=== PATIENT | male | born 1950 | race Caucasian/White ===

== ENCOUNTER 2021-10-08 10:04 | Inpatient (IN) | payer OTHER ==
[~2021-10-08] VITALS: Ht 175.3 cm; Wt 92.2 kg
[2021-10-08] MEDS: NICOTINE 14 MG/24 HR TRANSDERMAL TD SCH (09:00)
[2021-10-08] MEDS ORDERED: NS 2,730 ML in IV 1 EA IV ONE (10:20)
[2021-10-08 10:34] LABS: VENOUS BASE EXCESS -5.5 (-2.0-2.0); VENOUS HCO3 20.8 MEQ/L (23.0-27.0); VENOUS PARTIAL PRESSURE CO2 43.5 mmHg (38.0-50.0); VENOUS PARTIAL PRESSURE O2 46.3 mmHg (30.0-50.0); VENOUS PH 7.297 UNITS (7.330-7.430); VENOUS STANDARD HCO3 19.6 MEQ/L; VENOUS TOTAL CO2 22.1 MEQ/L (24.0-28.0)
[2021-10-08 10:40] LABS: BASO # 0.2 10^3/uL (0.0-0.2); EOS # 0.5 10^3/uL (0.0-0.5); EOS % 2.9 % (0.0-3.0); HEMATOCRIT 33.9 % (42.0-52.0); HEMOGLOBIN 11.1 g/dl (13.5-17.5); LYMPH # 2.9 10^3/uL (1.5-5.0); LYMPH % 15.6 % (24.0-44.0); MEAN CORPUSCULAR HEMOGLOBIN 31.3 pg (27.0-33.0); MEAN CORPUSCULAR HGB CONC 32.7 g/dl (32.0-36.5); MEAN CORPUSCULAR VOLUME 95.5 fl (80.0-96.0); MONO # 1.1 10^3/uL (0.0-0.8); MONO % 5.7 % (2.0-8.0); PLATELET COUNT, AUTOMATED 205 10^3/uL (150-450); RED BLOOD COUNT 3.55 10^6/uL (4.30-6.10); WHITE BLOOD COUNT 18.6 10^3/uL (4.0-10.0)
[2021-10-08 10:50] LABS: INR 0.94
[2021-10-08] MEDS ORDERED: cefTRIAXone SOD 2 GM in D5W MINI-BAG PLUS 50 ML IV ONE (10:50)
[2021-10-08 11:14] LABS: BILIRUBIN,DIRECT 0.2 MG/DL (0.0-0.2); BILIRUBIN,TOTAL 0.3 MG/DL (0.2-1.0); CALCIUM LEVEL 12.5 MG/DL (8.8-10.2); CREATININE FOR GFR 2.29 MG/DL (0.70-1.30); GLOMERULAR FILTRATION RATE 30.1 (>42); POTASSIUM SERUM 3.5 MEQ/L (3.5-5.1); THYROID STIMULATING HORMONE 2.21 uIU/ML (0.358-3.740)
[2021-10-08] MEDS ORDERED: ACETAMINOPHEN TAB 650MG DOSE (2X325MG) PO PRN (14:00)
[2021-10-08] MEDS ORDERED: OCEA0.654 (14:38)
[2021-10-08] MEDS ORDERED: ASPI-161 PO (14:38)
[2021-10-08] MEDS ORDERED: REFR0.5D8 OU (14:38)
[2021-10-08] MEDS ORDERED: D3 S20002 PO (14:38)
[2021-10-08] MEDS ORDERED: LISI30TA4 PO (14:38)
[2021-10-08] MEDS ORDERED: OXYC-517 PO (14:38)
[2021-10-08] MEDS ORDERED: SENN1TAB94 PO (14:38)
[2021-10-08] MEDS ORDERED: MELO15TA28 PO (14:38)
[2021-10-08] MEDS ORDERED: VENTAER INH (14:38)
[2021-10-08] MEDS ORDERED: METO1TAB32 PO (14:38)
[2021-10-08] MEDS ORDERED: ROSU40TA4 PO (14:38)
[2021-10-08] MEDS ORDERED: METF500T13 PO (14:38)
[2021-10-08] MEDS ORDERED: FISH1000 PO (14:38)
[2021-10-08] MEDS ORDERED: VITA500C24 PO (14:38)
[2021-10-08] MEDS ORDERED: GABA-283 PO (14:38)
[2021-10-08] MEDS ORDERED: ALB2.5NEB INH (14:38)
[2021-10-08] MEDS ORDERED: HOME MED LIST COMPLETE! XX SCH (14:40)
[2021-10-08 15:20] LABS: MAGNESIUM LEVEL 2.3 MG/DL (1.8-2.4); URIC ACID 7.7 MG/DL (3.5-7.2)
[2021-10-08 15:21] LABS: CREATININE,RANDOM URINE 73.4 MG/DL; TOTAL PROTEIN,RANDOM URINE 112.5 MG/DL (0.0-12.0)
[2021-10-08 16:05] VITALS: BP 116/65
[2021-10-08] MEDS: NS 1,000 ML IV SCH ×2 (16:38→23:09)
[2021-10-08] MEDS ORDERED: GLUCOSE 4GM CHEW TABLET PO PRN (20:15)
[2021-10-08] MEDS ORDERED: GLUCAGON INJ 1MG VIAL SC PRN (20:15)
[2021-10-08] MEDS ORDERED: DEXTROSE 50% 50 ML SYRINGE IV PRN (20:15)
[2021-10-08] MEDS ORDERED: ALBUTEROL SULFATE 2.5 MG/0.5 ML INH NEB SOLN INH PRN (20:20)
[2021-10-08] MEDS: INSULIN LISPRO (NovoLOG) PER UNIT SC SCH (21:00)
[2021-10-08] MEDS: SODIUM CHLORIDE NASAL 0.65% SPRAY BTL (OCEAN) SCH (21:00)
[2021-10-08] MEDS: ROSUVASTATIN 10 MG TAB (CRESTOR) PO SCH (21:32)
[2021-10-08] MEDS: GABAPENTIN 400MG CAP PO SCH (21:32)
[2021-10-08] MEDS: METOPROLOL SUCC *XL* 25MG TAB (TopROL *XL*) PO SCH (21:36)
[2021-10-08] MEDS: oxyCODONE 5MG TAB PO SCH (21:37)
[2021-10-08 22:00] VITALS: BP 128/67
[2021-10-09 05:52] LABS: BASO # 0.1 10^3/uL (0.0-0.2); BASO % 0.8 % (0.0-1.0); EOS # 0.5 10^3/uL (0.0-0.5); EOS % 4.3 % (0.0-3.0); HEMATOCRIT 26.9 % (42.0-52.0); LYMPH # 1.9 10^3/uL (1.5-5.0); LYMPH % 15.6 % (24.0-44.0); MEAN CORPUSCULAR HGB CONC 32.7 g/dl (32.0-36.5); MEAN CORPUSCULAR VOLUME 94.7 fl (80.0-96.0); MONO # 0.7 10^3/uL (0.0-0.8); MONO % 5.7 % (2.0-8.0); NEUTROPHILS # 8.2 10^3/uL (1.5-8.5); NEUTROPHILS % 69.1 % (36.0-66.0); PLATELET COUNT, AUTOMATED 148 10^3/uL (150-450); RED BLOOD COUNT 2.84 10^6/uL (4.30-6.10); WHITE BLOOD COUNT 11.9 10^3/uL (4.0-10.0)
[2021-10-09 06:00] VITALS: BP 124/62
[2021-10-09 06:10] LABS: HEMOGLOBIN 8.8 g/dl (13.5-17.5); HEMOGLOBIN A1c 5.3 %
[2021-10-09 06:26] LABS: ALBUMIN 2.3 GM/DL (3.2-5.2); ALT/SGPT 199 U/L (12-78); BILIRUBIN,DIRECT < 0.1 MG/DL (0.0-0.2); BILIRUBIN,TOTAL 0.2 MG/DL (0.2-1.0); BLOOD UREA NITROGEN 56 MG/DL (7-18); CALCIUM LEVEL 9.9 MG/DL (8.8-10.2); CARBON DIOXIDE LEVEL 23 MEQ/L (21-32); CHLORIDE LEVEL 120 MEQ/L (98-107); CREATININE FOR GFR 1.63 MG/DL (0.70-1.30); GLOMERULAR FILTRATION RATE 44.5 (>42); GLUCOSE, FASTING 93 MG/DL (70-100); POTASSIUM SERUM 3.2 MEQ/L (3.5-5.1); SODIUM LEVEL 148 MEQ/L (136-145); TOTAL PROTEIN 4.6 GM/DL (6.4-8.2)
[2021-10-09 06:37] LABS: HEPATITIS B SURFACE ANTIGEN NEGATIVE (NEGATIVE)
[2021-10-09 07:04] LABS: HEPATITIS B CORE ANTIBODY IGM NEGATIVE (NEGATIVE); HEPATITIS C VIRUS ABY INDEX 0.1 INDEX (<0.8)
[2021-10-09] MEDS ORDERED: POTASSIUM CHLORIDE 10MEQ SR TABLET PO ONE ×2 (07:10→17:15)
[2021-10-09] MEDS ORDERED: NS 0.45% IV ONE (07:15)
[2021-10-09] MEDS: INSULIN LISPRO (NovoLOG) PER UNIT SC SCH ×4 (07:30→20:49)
[2021-10-09] MEDS: SENOKOT S TAB PO SCH ×2 (07:30→12:00)
[2021-10-09] MEDS: ASCORBIC ACID 500 MG TAB PO SCH (08:51)
[2021-10-09] MEDS: ASPIRIN 81MG ENTERIC TABLET PO SCH (08:51)
[2021-10-09] MEDS: oxyCODONE 5MG TAB PO SCH ×3 (08:52→20:58)
[2021-10-09] MEDS: SODIUM CHLORIDE NASAL 0.65% SPRAY BTL (OCEAN) SCH (08:52)
[2021-10-09] MEDS: NICOTINE 14 MG/24 HR TRANSDERMAL TD SCH (08:52)
[2021-10-09] MEDS: cefTRIAXone SOD 2 GM in D5W MINI-BAG PLUS 50 ML IV SCH (11:01)
[2021-10-09 12:37] LABS: CALCIUM LEVEL 9.8 MG/DL (8.8-10.2); CREATININE FOR GFR 1.63 MG/DL (0.70-1.30); GLOMERULAR FILTRATION RATE 44.5 (>42); POTASSIUM SERUM 3.9 MEQ/L (3.5-5.1)
[2021-10-09 14:00] VITALS: BP 126/64
[2021-10-09 16:35] LABS: CALCIUM LEVEL 9.8 MG/DL (8.8-10.2); CREATININE FOR GFR 1.48 MG/DL (0.70-1.30); GLOMERULAR FILTRATION RATE 49.7 (>42)
[2021-10-09] MEDS: ROSUVASTATIN 10 MG TAB (CRESTOR) PO SCH (17:44)
[2021-10-09] MEDS: KCL 40MEQ in NS 1000ML 1,000 ML IV SCH (17:44)
[2021-10-09] MEDS: GABAPENTIN 400MG CAP PO SCH ×2 (17:48→20:57)
[2021-10-09 19:11] VITALS: BP 126/64
[2021-10-09] MEDS: METOPROLOL SUCC *XL* 25MG TAB (TopROL *XL*) PO SCH (20:53)
[2021-10-09 21:07] LABS: CALCIUM LEVEL 9.6 MG/DL (8.8-10.2); CREATININE FOR GFR 1.52 MG/DL (0.70-1.30); GLOMERULAR FILTRATION RATE 48.2 (>42); POTASSIUM SERUM 3.6 MEQ/L (3.5-5.1)
[2021-10-10 03:04] VITALS: BP 119/63
[2021-10-10] MEDS: KCL 40MEQ in NS 1000ML 1,000 ML IV SCH (04:33)
[2021-10-10 06:09] LABS: HEMATOCRIT 26.1 % (42.0-52.0); HEMOGLOBIN 8.5 g/dl (13.5-17.5); MEAN CORPUSCULAR HEMOGLOBIN 31.1 pg (27.0-33.0); MEAN CORPUSCULAR HGB CONC 32.6 g/dl (32.0-36.5); MEAN CORPUSCULAR VOLUME 95.6 fl (80.0-96.0); PLATELET COUNT, AUTOMATED 150 10^3/uL (150-450); RED BLOOD COUNT 2.73 10^6/uL (4.30-6.10); WHITE BLOOD COUNT 10.9 10^3/uL (4.0-10.0)
[2021-10-10 06:32] LABS: ALBUMIN 2.3 GM/DL (3.2-5.2); ALT/SGPT 209 U/L (12-78); BILIRUBIN,DIRECT < 0.1 MG/DL (0.0-0.2); BILIRUBIN,TOTAL 0.2 MG/DL (0.2-1.0); BLOOD UREA NITROGEN 38 MG/DL (7-18); CALCIUM LEVEL 10.2 MG/DL (8.8-10.2); CARBON DIOXIDE LEVEL 20 MEQ/L (21-32); CHLORIDE LEVEL 124 MEQ/L (98-107); CREATININE FOR GFR 1.35 MG/DL (0.70-1.30); GLOMERULAR FILTRATION RATE 55.3 (>42); GLUCOSE, FASTING 106 MG/DL (70-100); SODIUM LEVEL 151 MEQ/L (136-145); TOTAL PROTEIN 4.7 GM/DL (6.4-8.2)
[2021-10-10 06:53] LABS: BASOPHILS 2 % (0-1); EOSINOPHILS 3 % (0-3); LYMPHOCYTES 25 % (16-44); METAMYELOCYTES 1 % (0-0); NEUTROPHILS 69 % (28-66); PLATELET ESTIMATE NORMAL (NORMAL)
[2021-10-10 07:25] LABS: TOTAL PROTEIN 5.1 GM/DL (6.4-8.2)
[2021-10-10] MEDS: INSULIN LISPRO (NovoLOG) PER UNIT SC SCH ×2 (07:30→12:00)
[2021-10-10] MEDS ORDERED: D5W 1,000 ML IV ONE ×2 (08:30→18:55)
[2021-10-10] MEDS: D5W 1,000 ML IV SCH ×2 (08:51→18:07)
[2021-10-10] MEDS: ASPIRIN 81MG ENTERIC TABLET PO SCH (08:52)
[2021-10-10] MEDS: oxyCODONE 5MG TAB PO SCH ×3 (08:52→20:06)
[2021-10-10] MEDS: GABAPENTIN 400MG CAP PO SCH (08:52)
[2021-10-10] MEDS: ASCORBIC ACID 500 MG TAB PO SCH (08:52)
[2021-10-10] MEDS: SODIUM BICARBONATE 325 MG TAB PO SCH ×2 (08:53→20:03)
[2021-10-10] MEDS: cefTRIAXone SOD 2 GM in D5W MINI-BAG PLUS 50 ML IV SCH (12:08)
[2021-10-10 12:51] LABS: CALCIUM LEVEL 9.6 MG/DL (8.8-10.2); CREATININE FOR GFR 1.28 MG/DL (0.70-1.30); GLOMERULAR FILTRATION RATE 58.8 (>42)
[2021-10-10 14:00] VITALS: BP 134/80
[2021-10-10] MEDS: ROSUVASTATIN 10 MG TAB (CRESTOR) PO SCH (18:07)
[2021-10-10 18:59] LABS: CALCIUM LEVEL 9.9 MG/DL (8.8-10.2); CREATININE FOR GFR 1.39 MG/DL (0.70-1.30); GLOMERULAR FILTRATION RATE 53.5 (>42); POTASSIUM SERUM 3.5 MEQ/L (3.5-5.1)
[2021-10-10 19:03] VITALS: BP 106/62
[2021-10-10] MEDS: GABAPENTIN 300 MG CAP PO SCH (20:03)
[2021-10-10] MEDS: METOPROLOL SUCC *XL* 25MG TAB (TopROL *XL*) PO SCH (20:04)
[2021-10-10] MEDS: TAMSULOSIN 0.4 MG CAP PO SCH (20:04)
[2021-10-10] MEDS: POTASSIUM CHLORIDE 10MEQ SR TABLET PO SCH (20:57)
[2021-10-10] MEDS ORDERED: SODIUM BICARBONATE 100 MEQ in D5W 1,000 ML IV SCH (22:00)
[2021-10-11 01:26] LABS: BLOOD UREA NITROGEN 26 MG/DL (7-18); CALCIUM LEVEL 9.1 MG/DL (8.8-10.2); CARBON DIOXIDE LEVEL 21 MEQ/L (21-32); CHLORIDE LEVEL 116 MEQ/L (98-107); CREATININE FOR GFR 1.25 MG/DL (0.70-1.30); GLOMERULAR FILTRATION RATE > 60.0 (>42); GLUCOSE, FASTING 117 MG/DL (70-100); POTASSIUM SERUM 3.9 MEQ/L (3.5-5.1); SODIUM LEVEL 143 MEQ/L (136-145)
[2021-10-11 02:00] VITALS: BP 123/65
[2021-10-11 04:27] VITALS: BP 108/58
[2021-10-11 06:11] LABS: FREE KAPPA LIGHT CHAINS SERUM 45.2 mg/L (3.3-19.4); FREE LAMBDA LIGHT CHAINS SERUM 28.2 mg/L (5.7-26.3); KAPPA/LAMBDA RATIO SERUM 1.6 (0.26-1.65)
[2021-10-11 06:26] LABS: HEMATOCRIT 25.2 % (42.0-52.0); HEMOGLOBIN 8.3 g/dl (13.5-17.5); MEAN CORPUSCULAR HEMOGLOBIN 31.8 pg (27.0-33.0); MEAN CORPUSCULAR HGB CONC 32.9 g/dl (32.0-36.5); MEAN CORPUSCULAR VOLUME 96.6 fl (80.0-96.0); PLATELET COUNT, AUTOMATED 148 10^3/uL (150-450); RED BLOOD COUNT 2.61 10^6/uL (4.30-6.10)
[2021-10-11 06:45] LABS: ALBUMIN 2.3 GM/DL (3.2-5.2); ALT/SGPT 209 U/L (12-78); BILIRUBIN,DIRECT < 0.1 MG/DL (0.0-0.2); BILIRUBIN,TOTAL 0.3 MG/DL (0.2-1.0); BLOOD UREA NITROGEN 24 MG/DL (7-18); CALCIUM LEVEL 8.9 MG/DL (8.8-10.2); CARBON DIOXIDE LEVEL 23 MEQ/L (21-32); CHLORIDE LEVEL 116 MEQ/L (98-107); CREATININE FOR GFR 1.27 MG/DL (0.70-1.30); GLOMERULAR FILTRATION RATE 59.3 (>42); GLUCOSE, FASTING 141 MG/DL (70-100); POTASSIUM SERUM 3.6 MEQ/L (3.5-5.1); SODIUM LEVEL 144 MEQ/L (136-145); TOTAL PROTEIN 4.5 GM/DL (6.4-8.2)
[2021-10-11 07:38] LABS: BASOPHILS 1 % (0-1); EOSINOPHILS 4 % (0-3); LYMPHOCYTES 33 % (16-44); METAMYELOCYTES 2 % (0-0); MONOCYTES 1 % (0-5); NEUTROPHILS 59 % (28-66)
[2021-10-11 07:39] LABS: PLATELET ESTIMATE NORMAL (NORMAL)
[2021-10-11] MEDS: GABAPENTIN 300 MG CAP PO SCH ×2 (08:36→20:28)
[2021-10-11] MEDS: ASPIRIN 81MG ENTERIC TABLET PO SCH (08:36)
[2021-10-11] MEDS: POTASSIUM CHLORIDE 10MEQ SR TABLET PO SCH ×2 (08:36→20:28)
[2021-10-11] MEDS: oxyCODONE 5MG TAB PO SCH (08:36)
[2021-10-11] MEDS: ASCORBIC ACID 500 MG TAB PO SCH (08:36)
[2021-10-11] MEDS ORDERED: SUCRALFATE SUSP 1GM/10ML UD PO ONE (08:45)
[2021-10-11] MEDS: SODIUM BICARBONATE 325 MG TAB PO SCH ×2 (09:17→20:28)
[2021-10-11] MEDS ORDERED: GI COCKTAIL 50ML BTL(HYOSCYAMINE/MAALOX/LIDOCAINE VISCOUS)(1:3:1) PO ONE (10:00)
[2021-10-11] MEDS: cefTRIAXone SOD 2 GM in D5W MINI-BAG PLUS 50 ML IV SCH (10:47)
[2021-10-11] MEDS: SUCRALFATE SUSP 1GM/10ML UD PO SCH ×3 (12:00→20:30)
[2021-10-11] MEDS ORDERED: FLOM0.4C39 PO (12:38)
[2021-10-11] MEDS ORDERED: GABA-282 PO (12:40)
[2021-10-11 13:15] LABS: CALCIUM LEVEL 9.4 MG/DL (8.8-10.2); CREATININE FOR GFR 1.34 MG/DL (0.70-1.30); GLOMERULAR FILTRATION RATE 55.8 (>42); POTASSIUM SERUM 4.1 MEQ/L (3.5-5.1)
[2021-10-11 14:00] VITALS: BP 102/54
[2021-10-11] MEDS ORDERED: oxyCODONE 5MG TAB PO PRN (15:00)
[2021-10-11] MEDS ORDERED: GI COCKTAIL 50ML BTL(HYOSCYAMINE/MAALOX/LIDOCAINE VISCOUS)(1:3:1) PO PRN (16:00)
[2021-10-11] MEDS: ROSUVASTATIN 10 MG TAB (CRESTOR) PO SCH (18:24)
[2021-10-11 18:55] LABS: CALCIUM LEVEL 9.5 MG/DL (8.8-10.2); CREATININE FOR GFR 1.33 MG/DL (0.70-1.30); GLOMERULAR FILTRATION RATE 56.3 (>42); POTASSIUM SERUM 4.2 MEQ/L (3.5-5.1)
[2021-10-11] MEDS: TAMSULOSIN 0.4 MG CAP PO SCH (20:28)
[2021-10-11 20:29] VITALS: BP 122/56
[2021-10-11] MEDS: METOPROLOL SUCC *XL* 25MG TAB (TopROL *XL*) PO SCH (20:29)
[2021-10-11] MEDS ORDERED: CHOLESTYRAMINE 4 GM PWD PKT PO SCH (21:00)
[2021-10-11 22:00] VITALS: BP 119/62
[2021-10-12 06:00] VITALS: BP 136/73
[2021-10-12 06:35] LABS: HEMOGLOBIN 8.8 g/dl (13.5-17.5); MEAN CORPUSCULAR HEMOGLOBIN 31.5 pg (27.0-33.0); MEAN CORPUSCULAR HGB CONC 32.6 g/dl (32.0-36.5); MEAN CORPUSCULAR VOLUME 96.8 fl (80.0-96.0); PLATELET COUNT, AUTOMATED 165 10^3/uL (150-450); RED BLOOD COUNT 2.79 10^6/uL (4.30-6.10); WHITE BLOOD COUNT 10.2 10^3/uL (4.0-10.0)
[2021-10-12 06:55] LABS: ALBUMIN 2.5 GM/DL (3.2-5.2); ALT/SGPT 193 U/L (12-78); BILIRUBIN,DIRECT 0.3 MG/DL (0.0-0.2); BILIRUBIN,TOTAL 0.2 MG/DL (0.2-1.0); BLOOD UREA NITROGEN 21 MG/DL (7-18); CALCIUM LEVEL 9.2 MG/DL (8.8-10.2); CARBON DIOXIDE LEVEL 25 MEQ/L (21-32); CHLORIDE LEVEL 118 MEQ/L (98-107); CREATININE FOR GFR 1.18 MG/DL (0.70-1.30); GLOMERULAR FILTRATION RATE > 60.0 (>42); GLUCOSE, FASTING 126 MG/DL (70-100); POTASSIUM SERUM 4.1 MEQ/L (3.5-5.1); SODIUM LEVEL 147 MEQ/L (136-145); TOTAL PROTEIN 4.7 GM/DL (6.4-8.2)
[2021-10-12 07:30] LABS: ATYPICAL LYMPH 1 % (0-5); EOSINOPHILS 2 % (0-3); LYMPHOCYTES 19 % (16-44); METAMYELOCYTES 6 % (0-0); MONOCYTES 2 % (0-5); NEUTROPHILS 68 % (28-66); PLATELET ESTIMATE NORMAL (NORMAL)
[2021-10-12 07:31] LABS: ANISOCYTOSIS 1+; PLATELET CLUMPS SMALL AMT; POIKILOCYTOSIS 1+; TEAR DROP CELLS 1+
[2021-10-12 07:32] LABS: POLYCHROMASIA 1+
[2021-10-12] MEDS ORDERED: D5W 1,000 ML IV ONE ×2 (08:30→11:00)
[2021-10-12] MEDS ORDERED: ZOLEDRONIC ACID 3 MG in D5W 100 ML IV ONE (08:35)
[2021-10-12] MEDS: GABAPENTIN 300 MG CAP PO SCH ×2 (08:47→08:58)
[2021-10-12] MEDS: SODIUM BICARBONATE 325 MG TAB PO SCH (08:47)
[2021-10-12] MEDS: SUCRALFATE SUSP 1GM/10ML UD PO SCH ×2 (08:48→12:39)
[2021-10-12] MEDS: ASPIRIN 81MG ENTERIC TABLET PO SCH (08:48)
[2021-10-12] MEDS: ASCORBIC ACID 500 MG TAB PO SCH (08:48)
[2021-10-12] MEDS ORDERED: ZOLEDRONIC ACID 4 MG in IV 1 EA IV ONE ×2 (09:00→11:00)
[2021-10-12 10:47] LABS: CALCIUM LEVEL 9.1 MG/DL (8.8-10.2); CREATININE FOR GFR 1.33 MG/DL (0.70-1.30); GLOMERULAR FILTRATION RATE 56.3 (>42); POTASSIUM SERUM 4.4 MEQ/L (3.5-5.1)
[2021-10-12] MEDS: cefTRIAXone SOD 2 GM in D5W MINI-BAG PLUS 50 ML IV SCH (11:22)
[2021-10-12] MEDS ORDERED: NS 0.45% 1,000 ML IV ONE (11:25)
[2021-10-12 13:21] LABS: BLOOD UREA NITROGEN 19 MG/DL (7-18); CALCIUM LEVEL 9.4 MG/DL (8.8-10.2); CARBON DIOXIDE LEVEL 28 MEQ/L (21-32); CHLORIDE LEVEL 116 MEQ/L (98-107); CREATININE FOR GFR 1.12 MG/DL (0.70-1.30); GLOMERULAR FILTRATION RATE > 60.0 (>42); GLUCOSE, FASTING 99 MG/DL (70-100); POTASSIUM SERUM 3.8 MEQ/L (3.5-5.1); SODIUM LEVEL 148 MEQ/L (136-145)
[2021-10-12 13:59] VITALS: BP 160/95
[2021-10-15 14:19] LABS: ALBUMIN 2.94 GM/DL (3.29-5.55); ALBUMIN % 57.7 % (55.8-66.1); ALPHA-1-GLOBULIN % 5.5 % (2.9-4.9); ALPHA-1-GLOBULINS 0.28 GM/DL (0.17-0.41); ALPHA-2-GLOBULINS 0.74 GM/DL (0.42-0.99); ALPHA-2-GLOBULINS % 14.6 % (7.1-11.8); BETA-1-GLOBULINS % 7.9 % (4.7-7.2); BETA-2-GLOBULINS 0.25 GM/DL (0.19-0.55); BETA-2-GLOBULINS % 4.9 % (3.2-6.5); GAMMA GLOBULIN % 9.4 % (11.1-18.8); GAMMA GLOBULINS 0.48 GM/DL (0.65-1.58)
== END 2021-10-12 16:35 | disposition home or self-care (01) | DRG 683 ==
LOC: M ED 10:04 → M ED INP 13:54 → ENRESERV 14:55 → M MSPAV 16:11
PROVIDERS: ADMIT General Practice; ATTEND General Practice
DX: N17.9 Acute kidney failure, unspecified (principal); Q61.5 Medullary cystic kidney; E87.0 Hyperosmolality and hypernatremia; E87.2 Acidosis; R13.10 Dysphagia, unspecified; E11.22 Type 2 diabetes mellitus with diabetic chronic kidney disease; N18.30 Chronic kidney disease, stage 3 unspecified; Z87.442 Personal history of urinary calculi; G47.33 Obstructive sleep apnea (adult) (pediatric); E78.00 Pure hypercholesterolemia, unspecified; M19.90 Unspecified osteoarthritis, unspecified site; R07.89 Other chest pain; F17.210 Nicotine dependence, cigarettes, uncomplicated; Z79.82 Long term (current) use of aspirin; Z79.84 Long term (current) use of oral hypoglycemic drugs; Z79.1 Long term (current) use of non-steroidal anti-inflammatories (NSAID); Z79.891 Long term (current) use of opiate analgesic; Z79.899 Other long term (current) drug therapy; E86.0 Dehydration; D69.6 Thrombocytopenia, unspecified; D64.9 Anemia, unspecified; E83.52 Hypercalcemia; D72.829 Elevated white blood cell count, unspecified